=== PATIENT | male | born 1985 | race Caucasian/White ===

== ENCOUNTER → 2017-05-29 | Outpatient (CLI) | payer OTHER ==
[2014-08-31 18:49] VITALS: BP 163/85
[2017-05-29 11:55] LABS: BASO % 1 % (0-3); EOS % 1 % (0-3); HEMATOCRIT 40.2 % (39.0-53.0); HEMOGLOBIN 14.2 g/dL (13.0-17.5); LYMPH # 0.7 x10^3/uL (1.0-4.8); LYMPH % 26 % (24-48); MEAN CORPUSCULAR HEMOGLOBIN 32 pg (25-35); MEAN CORPUSCULAR HGB CONC 35 g/dL (31-37); MEAN CORPUSCULAR VOLUME 89 fL (79-100); MONO # 0.1 x10^3/uL (0.0-1.1); MONO % 4 % (0-9); NEUT # 1.8 x10^3uL (1.8-7.7); NEUT % 68 % (31-73); PLATELET COUNT 83 x10^3/uL (140-400); RED CELL DISTRIBUTION WIDTH 14.9 % (11.5-14.5); WHITE BLOOD COUNT 2.6 x10^3/uL (4.0-11.0)
[2017-05-29 12:03] LABS: ALBUMIN 3.5 g/dL (3.4-5.0); ALBUMIN/GLOBULIN RATIO 0.9 (1.0-1.7); CALCIUM 9.3 mg/dL (8.5-10.1); CREATININE 1.2 mg/dL (0.7-1.3); GFR 70.2; POTASSIUM 3.9 mmol/L (3.5-5.1); TOTAL BILIRUBIN 0.7 mg/dL (0.2-1.0); TOTAL PROTEIN 7.3 g/dL (6.4-8.2)
== END | disposition home or self-care (01) ==
LOC: LAB 11:16
PROVIDERS: ATTEND Family Medicine
DX: K74.60 Unspecified cirrhosis of liver (principal); B19.20 Unspecified viral hepatitis C without hepatic coma; Z86.39 Personal history of other endocrine, nutritional and metabolic disease
CPT/HCPCS: 36415; 80053; 82306; 82607; 82746; 83690; 84443; 85025; 85610

== ENCOUNTER 2019-07-15 16:20 | Emergency (ER) | payer SELFPAY ==
[~2019-07-15] VITALS: Ht 193 cm; Wt 113.4 kg
[2019-07-15] MEDS ORDERED: NALOXONE 2 MG/2 ML DISP.SYRIN. IV ONE (16:30)
[2019-07-15] MEDS ORDERED: IV NORMAL SALINE 1,000ML 1,000 ML IV ONE (16:30)
--- NOTE | 2019-07-15 16:30 | PHYS DOC ---
Past History Past Medical History: No Pertinent History Past Surgical History: Tonsillectomy Alcohol Use: None Drug Use: None Adult General Chief Complaint Chief Complaint: OVERDOSE HPI HPI Patient is a 34-year-old male who has a history of opiate use, who was found unresponsive on the floor of his home by his family, with a pill bottle next to him. EMS found the patient with an oxygen saturation in the 80s, although when he was stimulated, he would begin to wake up, and his oxygen saturation would improve to the lower 90s. Upon arrival, the patient is sleepy, but arousable to verbal stimulus, and states that he crushed and injected a 30 mg oxycodone IR tablet, just prior to arrival. He states he has been to rehabilitation in the past, and states he has cut down significantly on his opiate use, and does not think he needs to go back to rehabilitation. He states he has a past history of hepatitis C with cirrhosis of his liver, and states his hepatitis C has been treated, and he used to drink alcohol but has not had any recently. He used marijuana yesterday denies any other drug use. There are no alleviating or exacerbating factors to his symptoms. Review of Systems Review of Systems Constitutional: Denies fever or chills [] Eyes: Denies change in visual acuity, redness, or eye pain [] HENT: Denies nasal congestion or sore throat [] Respiratory: Denies cough or shortness of breath [] Cardiovascular:The patient denies any shortness of breath, chest pain, palpitations, or orthopnea [] GI: Denies abdominal pain, nausea, vomiting, bloody stools or diarrhea [] : Denies dysuria or hematuria [] Musculoskeletal: Denies back pain or joint pain [] Integument: Denies rash or skin lesions [] Neurologic: Denies headache, focal weakness or sensory changes [] Endocrine: Denies polyuria or polydipsia [] Psychiatric: Denies suicide attempt or suicidal ideation All other systems were reviewed and found to be within normal limits, except as documented in this note. Allergies Allergies Allergies Coded Allergies Type Severity Reaction Last Updated Verified Penicillins Allergy Unknown 08/31/14 No Physical Exam Physical Exam PHYSICAL EXAM: CONSTITUTIONAL: Well developed, well nourished HEAD: normocephalic, atraumatic EENT: PERRL, EOMI. pupils are 2 mm bilaterally. Conjunctivae normal color, sclerae non-icteric; moist mucous membranes. NECK: Supple, non-tender; no meningismus. LUNGS: Lungs CTA, breathing even and unlabored. Normal air movement. HEART: Regular rate and rhythm, no murmur CHEST: No deformity; non-tender ABDOMEN: The abdomen is soft, and non-tender, no masses or bruits. EXTREM: Normal ROM; no deformity, no calf tenderness. Normal pulses palpable in all extremities. There is no pedal edema. There are track gayle on the upper extremities bilaterally. SKIN: No rash; no diaphoresis NEURO: Somnolent but awake and Alert; normal speech and cognition; CN's grossly intact; strength grossly intact without focal deficit. BACK: No CVA TTP. Current Patient Data Lab Results Laboratory Tests Test 07/15/19 16:37 07/15/19 17:20 White Blood Count 3.8 x10^3/uL Red Blood Count 4.93 x10^6/uL Hemoglobin 15.9 g/dL Hematocrit 47.2 % Mean Corpuscular Volume 96 fL Mean Corpuscular Hemoglobin 32 pg Mean Corpuscular Hemoglobin Concent 34 g/dL Red Cell Distribution Width 13.5 % Platelet Count 125 x10^3/uL Neutrophils (%) (Auto) 67 % Lymphocytes (%) (Auto) 18 % Monocytes (%) (Auto) 13 % Eosinophils (%) (Auto) 2 % Basophils (%) (Auto) 1 % Neutrophils # (Auto) 2.5 x10^3uL Lymphocytes # (Auto) 0.7 x10^3/uL Monocytes # (Auto) 0.5 x10^3/uL Eosinophils # (Auto) 0.1 x10^3/uL Basophils # (Auto) 0.0 x10^3/uL Sodium Level 140 mmol/L Potassium Level 4.3 mmol/L Chloride Level 103 mmol/L Carbon Dioxide Level 33 mmol/L Anion Gap 4 Blood Urea Nitrogen 16 mg/dL Creatinine 1.0 mg/dL Estimated GFR (Cockcroft-Gault) 85.5 BUN/Creatinine Ratio 16 Glucose Level 101 mg/dL Calcium Level 8.4 mg/dL Total Bilirubin 0.3 mg/dL Aspartate Amino Transf (AST/SGOT) 15 U/L Alanine Aminotransferase (ALT/SGPT) 11 U/L Alkaline Phosphatase 65 U/L Troponin I Quantitative < 0.017 ng/mL Total Protein 6.4 g/dL Albumin 2.9 g/dL Albumin/Globulin Ratio 0.8 Current Medications Medications (Trade) Dose Ordered Sig/Mohini Route PRN Reason Start Time Stop Time Status Last Admin Dose Admin Sodium Chloride 1,000 ml @ 1,000 mls/hr 1X ONCE IV 07/15/19 16:30 07/15/19 17:29 DC 07/15/19 16:38 Naloxone HCl (Narcan) 1 mg 1X ONCE IV 07/15/19 16:30 07/15/19 16:31 DC EKG EKG Normal sinus rhythm a rate of 84 beats for minute, normal axis Normal intervals, there is subtle J-point elevation diffusely, with questionable IL depression and more prominent ST elevation inferiorly, with some peaked/prominent T waves throughout the lateral precordial leads. The EKG was reviewed with Dr. Frey, who felt that while it did not represent an acutely ischemic event, thought the patient might have pericarditis based on the EKG and recommended overnight observation, serial enzymes, and an echo in the morning. Radiology/Procedures Radiology/Procedures [] Course & Med Decision Making Course & Med Decision Making Pertinent Labs studies reviewed. (See chart for details) [][]6:15 PM: The patient's condition remains stable. He continues to deny having had any chest pain or shortness of breath or any other cardiac symptoms. I discussed the abnormal EKG with the patient, as well as his lab results, and the possibility of cardiac abnormality causing his EKG changes, including ischemia or pericarditis (the patient's labs including troponin are unremarkable). I discussed with the manager cardiac cath I consulted recommended he stay overnight for further testing but the patient declined, citing the need to go home. I discussed risks of undiagnosed and untreated acute coronary or cardiac abnormality, including and permanent debility, and the patient expressed understanding. I stressed importance of close follow-up and return precautions as well as importance of getting into rehabilitation for his overdose and opiate addiction. The patient states he did not feel he needed rehabilitation, but I stressed his high risk of from overdose if he continued without getting help. Dragon Disclaimer Dragon Disclaimer This electronic medical record was generated, in whole or in part, using a voice recognition dictation system. Departure Departure: Impression: Primary Impression: Opiate overdose Additional Impressions: Opiate addiction Abnormal ECG Disposition: AGAINST MEDICAL ADVICE Condition: STABLE Referrals: RENUKA NEWTON MD Patient Instructions: Narcotic Overdose, Opiate Dependence Additional Instructions: It is critically important that you get help for your opiate addiction, as you had a near fatal overdose today and further treatment is required to prevent you from suffering from further opiate use or overdose. Follow-up with cardiology for further evaluation of her abnormal EKG. The ER physician recommended he stay in the hospital overnight but he declined. Return to medical care if you are willing to undergo further treatment. Problem Qualifiers IMAN LACEY MD Jul 15, 2019 16:29
[2019-07-15 16:49] LABS: BASO % 1 % (0-3); EOS # 0.1 x10^3/uL (0.0-0.7); EOS % 2 % (0-3); HEMATOCRIT 47.2 % (39.0-53.0); HEMOGLOBIN 15.9 g/dL (13.0-17.5); LYMPH # 0.7 x10^3/uL (1.0-4.8); LYMPH % 18 % (24-48); MEAN CORPUSCULAR HEMOGLOBIN 32 pg (25-35); MEAN CORPUSCULAR HGB CONC 34 g/dL (31-37); MEAN CORPUSCULAR VOLUME 96 fL (79-100); MONO # 0.5 x10^3/uL (0.0-1.1); MONO % 13 % (0-9); NEUT # 2.5 x10^3uL (1.8-7.7); NEUT % 67 % (31-73); PLATELET COUNT 125 x10^3/uL (140-400); RED BLOOD COUNT 4.93 x10^6/uL (4.30-5.70); RED CELL DISTRIBUTION WIDTH 13.5 % (11.5-14.5); WHITE BLOOD COUNT 3.8 x10^3/uL (4.0-11.0)
[2019-07-15 17:09] VITALS: BP 120/71
--- NOTE | 2019-07-15 17:29 | EKG ---
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
[2019-07-15 17:43] LABS: ALBUMIN 2.9 g/dL (3.4-5.0); ALBUMIN/GLOBULIN RATIO 0.8 (1.0-1.7); CALCIUM 8.4 mg/dL (8.5-10.1); GFR 85.5; POTASSIUM 4.3 mmol/L (3.5-5.1); TOTAL BILIRUBIN 0.3 mg/dL (0.2-1.0); TOTAL PROTEIN 6.4 g/dL (6.4-8.2)
--- NOTE | 2019-07-21 08:22 | EKG ---
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
== END 2019-07-15 18:20 | disposition left against medical advice (07) ==
LOC: ER 16:20
DX: T40.2X2A Poisoning by other opioids, intentional self-harm, initial encounter (principal); R40.20 Unspecified coma; F11.20 Opioid dependence, uncomplicated; R94.31 Abnormal electrocardiogram [ECG] [EKG]; Z88.0 Allergy status to penicillin; Y92.89 Other specified places as the place of occurrence of the external cause
CPT/HCPCS: 36415; 80053; 82553; 84484; 85025; 93005; 99285-25; J7030